=== PATIENT | female | born 1995 | race Caucasian/White ===

== ENCOUNTER 2022-07-23 06:53 | Day surgery (SDC) | payer OTHER, SELFPAY ==
[2022-07-23] MEDS: LACTATED RINGERS 1000 ML 1,000 ML 100 ML IV (07:00)
[2022-07-23 07:06] VITALS: BMI 22.8
[2022-07-23 07:30] VITALS: BP 110/65; PULSE 77; RESP 18; TEMP 36.7; O2SAT 99
[2022-07-23] MEDS: SODIUM CHLORIDE 0.9 % (FLUSH) 10 ML SYRINGE IVF (07:34)
[2022-07-23 07:47] LABS: Ur HCG Qualitative* Negative (Negative)
[2022-07-23] MEDS: CEFAZOLIN 2 GM INJ IVP (08:33)
[2022-07-23] MEDS: BACITRACIN OINTMENT BULK TUBE 1 APPLIC TOPICAL (09:16)
[2022-07-23] MEDS: LIDOCAINE 1 % PF 30 ML INJECTION (09:17)
--- NOTE | 2022-07-23 09:23 | W.ANESCHARGE ---
Anesthesia Charges Start Date/Time Anesthesia Start Date: 07/23/22 Anesthesia Start Time: 08:30 Stop Date/Time Anesthesia Stop Date: 07/23/22 Anesthesia Stop Time: 09:31
--- NOTE | 2022-07-23 09:32 | W.ANESCHARGE ---
Anesthesia Charges Start Date/Time Anesthesia Start Date: 07/23/22 Anesthesia Start Time: 08:30 Stop Date/Time Anesthesia Stop Date: 07/23/22 Anesthesia Stop Time: 09:31
[2022-07-23 09:35] VITALS: BP 91/55; PULSE 62; RESP 16; TEMP 36.6; O2SAT 98
[2022-07-23 09:45] VITALS: BP 101/69; PULSE 64; RESP 16; O2SAT 98
--- NOTE | 2022-07-23 09:47 | W.PM.GYNPROC ---
Procedure Note Date Seen: 07/23/22 Procedure Details: PREOPERATIVE DIAGNOSIS: Labial hypertrophy and inflammation POSTOPERATIVE DIAGNOSIS: Labial hypertrophy and inflammation PROCEDURE: Bilateral labia plasty SURGEON: Nohemy Daugherty MD ANESTHESIA: Monitored anesthesia care, local with 1% lidocaine IV FLUIDS: 500 mL crystalloid EBL: 5 mL FINDINGS: Mons normal, clitoris normal, urethral meatus normal. Labia minora are elongated bilaterally along the anterior aspect, with right longer than left. Inner aspect of the right labium minora is slightly roughened and thickened, exterior to Engle's line, extending to the keratinized skin of the distal most labium.? Perineum and anus normal appearance.? Vaginal introitus normal appearance.? COMPLICATIONS: None PROCEDURE IN DETAIL: Patient was taken to the operating room with IV running. Monitored anesthesia care was established. She was prepped and draped in the usual sterile fashion in the dorsal lithotomy position. She was given IV cefazolin in preoperative prophylaxis. Exam under anesthesia revealed the above-noted findings. Labia minora were marked with a surgical marker along the anticipated line of incision, encompassing the roughened, thickened skin in the distal most aspect of the right labium minora, and with an incision along the left side to even the length of the labium there. Labial skin was injected with a total 10 mL of 1% lidocaine adjacent to this line. The distal labium on each side was excised sharply with a scalpel while providing tension with Allis clamps. Bovie electrocautery was used sparingly along the subcutaneous tissue of the right labium. One subcuticular stitch of 4 0 Vicryl was placed in the right labium. The skin edges were then oversewn with 4-0 Vicryl in a running fashion. This was repeated on the left side. Scant oozing was noted on the left labium, and none on the right, at the end of procedure. Antibacterial ointment was applied to bilateral labium. Patient tolerated procedure well was taken to recovery area in stable condition.
[2022-07-23 10:00] VITALS: BP 114/69; PULSE 74; RESP 16; O2SAT 98
[2022-07-23] MEDS: HYDROCODONE/ACETAMIN 7.5-325 TABLET 1 TAB PO (10:08)
[2022-07-23 10:15] VITALS: BP 109/68; PULSE 80; RESP 16; O2SAT 97
[2022-07-23 10:30] VITALS: BP 104/64; PULSE 84; RESP 16; TEMP 36.7; O2SAT 98
== END 2022-07-23 10:59 | disposition home or self-care (01) ==
PROVIDERS: PCP Registered Nurse; Visit Provider Obstetrics & Gynecology
PROC: (CPT 56620; principal; 2022-07-23 08:30)
DX: N90.60 Unspecified hypertrophy of vulva (principal)
CPT/HCPCS: 56620; 00940; 36415; 81025; 86850; 86900; 86901; 88305; A9270; J0690; J1100; J2001; J2250; J2405; J2704; J3010; J7120

== ENCOUNTER 2022-11-06 14:05 | Outpatient (CLI) | payer OTHER, SELFPAY ==
[2022-11-06 18:16] LABS: Chlamydia DNA Amplified* NOT DETECTED (No Detected); GC DNA Amplified* NOT DETECTED (No Detected)
== END 2022-11-06 14:06 | disposition home or self-care (01) ==
PROVIDERS: PCP Registered Nurse; Visit Provider Registered Nurse
DX: Z34.91 Encounter for supervision of normal pregnancy, unspecified, first trimester (principal); O20.9 Hemorrhage in early pregnancy, unspecified; Z3A.09 9 weeks gestation of pregnancy
CPT/HCPCS: 76817; 80061; 84443; 86592; 86703; 86762; 86787; 86803; 86850; 86900; 86901; 87086; 87340; 87491; 87591

== ENCOUNTER 2023-01-21 14:00 | Outpatient (CLI) | payer OTHER, SELFPAY ==
--- NOTE | 2023-01-21 14:00 | CRLHL7_ITS ---
For Patients: As a result of the Century Cures Act, medical imaging exams and procedure reports are released immediately into your electronic medical record. You may view this report before your referring provider. If you have questions, please contact your health care provider. INDICATION: 2nd trimester anatomical survey. TECHNIQUE: Ultrasound OB pelvis transabdominal. Real-time gamez-scale imaging of the fetus was performed as well as color Doppler and spectral Doppler analysis of the umbilical artery. COMPARISON: None. FINDINGS: There is a single living intrauterine gestation. heart activity: Regular cardiac rate of 137 beats per minute. Orientation: Breech. Placenta: Anterior. No previa. Amniotic fluid volume: Alexa. Deepest pocket 5 cm. Cervix: 3.8 cm. Biometry: Biparietal diameter: 20 weeks 1 day. Head circumference: 20 weeks 0 days. Abdominal circumference: 19 weeks 3 days. Femoral length: 20 weeks 0 days. The composite ultrasound gestational age is calculated at 20 weeks 0 days with an estimated sonographic due date of June 10, 2023. The weight is estimated at 310 grams, the 24th percentile. Anatomical Survey: 4 chamber heart: Visualized. Stomach: Visualized. Kidneys: Visualized. Bladder: Visualized. Spine: Visualized. Sacrum: Visualized. 4 extremities: Visualized. Cord insertion: Visualized. 3V cord: Visualized. Face: Visualized. Nose: Visualized. Lips: Visualized. Cerebellum: Visualized. Cisterna Magna: Visualized. Lateral ventricles: Visualized. IMPRESSION: 1. Single viable intrauterine . 2. No intrinsic abnormalities noted on anatomic survey. Dictated by Anival Hearn MD @ 01/23/2023 7:54:00 AM (Electronically Signed)
== END 2023-01-21 14:01 | disposition home or self-care (01) ==
LOC: US 14:01
PROVIDERS: Visit Provider Advanced Practice Midwife
DX: Z34.92 Encounter for supervision of normal pregnancy, unspecified, second trimester (principal); Z3A.20 20 weeks gestation of pregnancy
CPT/HCPCS: 76805

== ENCOUNTER 2023-04-08 15:22 | Outpatient (CLI) | payer OTHER, SELFPAY ==
--- OUTSIDE RECORDS SUMMARY | 2023-04-16 12:00 | XMS_ITS | Clinical Summary ---
Author Name Unknown Organization [facility] Address [place], [place] [address] Care Team Providers Care Home Health Care Physician Name Role Phone Clinic, No Pcp Or Primary Care Provider Unavaila ble Allergies No known active allergies Medications Medication Sig Dispensed Refills Start Date End Date Status 21/iron fu/folic acid ( COMPLETE ORAL) 0 Active clotrimazole (LOTRIMIN) 1 % cream Apply topically to affected area(s) 2 times a day. 30 g 0 12/07/2021 Active hydrocortisone 2.5% cream Apply topically to affected area(s) 2 times a day as needed for irritation or rash. 30 g 0 12/07/2021 Active ondansetron (ZOFRAN) 4 mg tablet 4 MG ORALLY EVERY 6 HOURS NEEDED FOR NAUSEA AND VOMITING 0 12/05/2022 Active vitamins-folic acid 1 mg ( RX) tablet Take 1 Tablet by mouth once daily. 0 Active sertraline (ZOLOFT) 50 mg tablet Take 75 mg by mouth once daily. 0 Active Active Problems Estimated Date of Delivery Comme nts Yes 06/09/2023 No known active problems Social History Tobacco Use Types Packs/Day Years Used Date Smoking Tobacco: Never Smokeless Tobacco: Never Tobacco Cessation:Counseling Given: Yes Alcohol Use Standard Drinks/Week Comments Not Currently 0 (1 standard drink = 0.6 oz pur e alcohol) PHQ-2 Answer Date Recorded PHQ-2 TOTAL SCORE 3 10/27/2020 Social Connections Answer Date Recorded Frequency of Communication with Friends and Fami ly Not on file 04/07/2021 Financial Resource Strain Answer Date R ecorded Difficulty of Paying Living Expenses Not on file 04/07/2021 Difficulty of Paying Living Expenses Not on file 04/07/2021 Estimated Date of Delivery Comme nts Yes 06/09/2023 Sex and Gender Information Value Date Recorded Sex Assigned at Not on file Gender Identity Not on file Sexual Orientation Not on file Obstetrics History Para Term AB IAB SAB Ectopic Multiple Livin g Live Births 2 Date Outcome GA Total Labor Labor/2nd/3rd Weight Sex Delivery Anes PTL Beth A1 A5 Name Cl in Current Last Filed Vital Signs Vital Sign Reading Time Taken Comments Blood Pressure 110/64 01/02/2023 4:24 PM CDT Pulse 78 01/02/2023 4:24 PM CDT Temperature 37.3 ??C (99.1 ??F) 01/02/2023 4:24 PM CD T Respiratory Rate 18 01/02/2023 4:24 PM CDT Oxygen Saturation 97% 01/02/2023 4:24 PM CDT Inhaled Oxygen Concentration - - Weight 65.5 kg (144 lb 8 oz) 01/02/2023 4:24 PM CDT Height 157.5 cm (5' 2) 02/24/2021 1:00 PM [employer]PER[employer]OR [employer] Body Mass Index 26.43 02/24/2021 1:00 PM [employer] Plan of Treatment Health Maintenance Due Date Last Done Comments COVID-19 vaccine series (#1) 03/06/1997 HPV series for age 9-26 (1 - 2-dose series) 09/04/2007 Tdap 09/04/2007 HIV for age 15-65 09/04/2011 Hepatitis C screening for ag e 18-79 2014 Tetanus booster 2016 BMI (ht and wt on same day) for age 18+ 10/27/2021 10/27/2020 Depression screening for age 12+ 10/27/2021 10/28/19 21 Influenza for age 9-49 12/06/2022 Pap test for age 21-65 08/01/2023 07/31/2020 Pneumococcal series for age 6-64 Aged Out No longer eligible based on patient's age to complete this topic Care Teams Home Health Care Physician Relationship Specialty Start Date End Date Clinic, No Pcp Or . PCP - General 10/12/20
--- OUTSIDE RECORDS SUMMARY | 2023-04-16 12:00 | XMS_ITS | Encounter Summary ---
Author Name Unknown Organization [facility] Address [address] [place] [address] Care Team Providers Care Poultry Grader Name Role Phone None Reported, Pcp Primary Care Provider Unavail able Reason for Visit * Reason Comments Cough 7 days, worse over t he weekend Sinus Problem Over a month, comple tatiana one course of antibiotic Chest Pain 3 days Shortness of Breath 4 days all the time , unable to lay down Wheezing 4 days * Appointment Request (Routine) - Closed Specialty Diagnoses / Procedures Referred By Akhil white Referred To Contact Family Medicine Referral ID Status Reason Start Date Expiration Date Visits Re quested Visits Authorized [id number] Closed 01/13/2023 01/13/2024 1 1 Encounter Details Date Type Department Care Team (Late st Contact Info) Description 01/13/2023 6:00 PM CDT Office Visit Department of Family Medicine, [facility], in [place], [place] [address] [phone] Merced Piedra APRN, C.N.P. [address] [phone] Pneumonia (Primary Dx) Social History Tobacco Use Types Packs/Day Years Used Date Smoking Tobacco: Never Smokeless Tobacco: Never Tobacco Cessation:Counseling Given: No Nutrition Answer Date Recorded Nutrition: EVOO Fat Source Unknown 06/12 Nutrition: Servings of Fruits/Vegetables per Day Not on file 06/12/2020 Dental Answer Date Recorded Dental: Regular Dentist Unknown 06/16/19 21 Estimated Date of Delivery Comme nts Yes 06/09/2023 Sex and Gender Information Value Date Recorded Sex Assigned at Not on file Gender Identity Not on file Sexual Orientation Not on file documented as of this encounter Last Filed Vital Signs Vital Sign Reading Time Taken Comments Blood Pressure 117/75 01/13/2023 5:41 PM CDT Pulse 99 01/13/2023 5:41 PM CDT Temperature 36.7 ??C (98.1 ??F) 01/13/2023 5:41 PM CD T Respiratory Rate 20 01/13/2023 5:41 PM CDT Oxygen Saturation 96% 01/13/2023 5:41 PM CDT Inhaled Oxygen Concentration - - Weight 66.5 kg (146 lb 9.7 oz) 01/13/2023 5:41 P M CDT Height - - Body Mass Index - - documented in this encounter Progress Notes * Merced Piedra, MARGO, C.N.P. - 01/13/2023 6:00 PM CDT SUBJECTIVE CHIEF COMPLAINT / REASON FOR VISIT Faina Hernandez is a 27 y.o. female who presents for evaluation of persistent sinus symptoms. HISTORY OF PRESENT ILLNESS Faina is a pleasant 27-year-old female here today for concerns of persistent sinus symptoms, wheezing. Patient states that she is 20 weeks at this time. She was seen a week ago in clinic and treated for a sinus infection with amoxicillin. She finished the antibiotic and has not had any relief of symptoms. She reports cough, sinus congestion, chest discomfort with coughing, shortness a breath and wheezing. She states it is difficult to lay down flat and at times with coughing fits has difficulty catching her breath. She feels she can hear wheezing. She denies any fevers, nausea or vomiting, changes in bowel or bladder. She did take a COVID test at home today and it was negative. She has tried Sudafed a few times as well as dextromethorphan. She also has tried Tylenol for discomfort with no relief of symptoms from either. Medications above were okayed by her OB. Review of Systems A brief review of systems was negative except for that mentioned in the history of present illness. Current Outpatient Medications: cowmjzc-Rl-flkc-FA (VINATE ONE) 60 mg iron-1 mg per tablet, Take 1 tablet by mouth daily.,Disp: , Rfl: sertraline (ZOLOFT) 50 mg tablet, Take 50 mg by mouth daily., Disp: , Rfl: albuterol 90 mcg/actuation inhaler, Inhale 2 puffs every 6 (six) hours as needed for wheezing., Disp: 6.7 g, Rfl: 0 azithromycin (ZITHROMAX) 250 mg tablet, Take 500 mg (2 tablets) by mouth the first day then 250 mg (1 tablet) by mouth for 4 more days., Disp: 6 tablet, Rfl: 0 hydrocortisone (HYTONE) 2.5 % cream, Apply 1 application topically 2 (two) times a day as needed for irritation or rash., Disp: 30 g, Rfl: 0 No Known Allergies OBJECTIVE PHYSICAL EXAM BP 117/75 (BP Location: Right arm, Patient Position: Sitting, Cuff Size: Regular) Pulse 99 Temp36.7 ??C (Temporal) Resp 20 Wt 66.5 kg SpO2 96% No There is no height or weight on file to calculate BMI. Vitals and nursing note reviewed. Constitutional General: She is not in acute distress. Appearance: Normal appearance. She is ill-appearing. HENT Right Ear: Tympanic membrane, ear canal and external ear normal. There is no impacted cerumen. Left Ear: Tympanic membrane, ear canal and external ear normal. There is no impacted cerumen. Nose: Congestion present. No rhinorrhea. Mouth/Throat: Mouth: Mucous membranes are moist. Pharynx: Oropharynx is clear. No posterior oropharyngeal erythema. Eyes General: Right eye: No discharge. Left eye: No discharge. Conjunctiva/sclera: Conjunctivae normal. Cardiovascular Pulses: Normal pulses. Heart sounds: Normal heart sounds. Pulmonary Effort: Pulmonary effort is normal. No respiratory distress. Breath sounds: Wheezing and rhonchi present. Musculoskeletal Cervical back: Neck supple. Lymphadenopathy Cervical: No cervical adenopathy. Skin General: Skin is warm and dry. Capillary Refill: Capillary refill takes 2 to 3 seconds. Neurological Mental Status: She is alert and oriented to person, place, and time. ASSESSMENT / PLAN 1. Pneumonia Given patient's report of symptoms, physical exam recommend patient be treated for atypical pneumonia concerns, given she just finished a full treatment of amoxicillin. Albuterol inhaler also sent topharmacy to do every 6 hours as needed for wheezing. Discussed red flag symptoms with patient for which she should return to the clinic or present to the ER should they occur. Discussed appropriate administration of the above medications. A comprehensive discussion was held with the patient to review the diagnosis and treatment plan. Medication side effects and possible interactions discussed. Discussed risks??? benefits??? alternatives??? side effects of treatment. The patient acknowledged their understanding of all items discussed, and was afforded the opportunity to clarify and ask additional questions. - azithromycin (ZITHROMAX) 250 mg tablet; Take 500 mg (2 tablets) by mouth the first day then 250 mg (1 tablet) by mouth for 4 more days. Dispense: 6 tablet; Refill: 0 - albuterol 90 mcg/actuation inhaler; Inhale 2 puffs every 6 (six) hours as needed for wheezing. Dispense: 6.7 g; Refill: 0 Merced Piedra APRN, C.N.P. documented in this encounter Plan of Treatment Not on file documented as of this encounter Visit Diagnoses Diagnosis Pneumonia- Primary documented in this encounter Care Teams Poultry Grader Relationship Specialty Start Date End Date None Reported, Pcp PCP - General Family Medicine 01/13/23 documented as of this encounter
--- OUTSIDE RECORDS SUMMARY | 2023-04-16 12:00 | XMS_ITS | Encounter Summary ---
Author Name Unknown Organization [facility] Address [address] [place] [address] Care Team Providers Care Concrete Puddler Name Role Phone None Reported, Pcp Primary Care Provider Unavail able Reason for Visit * Reason Onset Date Comments Cough 01/17/2023 Encounter Details Date Type Department Care Team (Late st Contact Info) Description 01/17/2023 Nurse Triage Department of Family Medicine, [facility], in [place], [place] [address] [place] [phone] Kei Quijano, R.N. Cough Social History Tobacco Use Types Packs/Day Years Used Date Smoking Tobacco: Never Smokeless Tobacco: Never Nutrition Answer Date Recorded Nutrition: EVOO Fat [...] on file documented as of this encounter Miscellaneous Notes * Telephone Encounter - Kei Quijano, R.N. - 01/17/2023 11:51 AM CDT Chief Complaint / Reason for Call Patient is a 27 y.o. female calling regarding Cough. Assessment Concern: Ongoing cough. COVID test has been negative via home test. Patient was seen twice for thisalready. She initially was on amoxicillin. It did not help her with her cough. Then she was given zpack and inhaler. She was last seen for this on 01/13/23. Since her last visit she states her breathing is not very much improved. Her chest hurts less but she still has the cough, wheezing, shortness of breath. She denies fevers. She is 20-21 weeks . No fevers. Present for: 1 month. Home cares tried: Albuterol, Zithromax. Calling to request: an appointment The recommended disposition is See a health care provider within 24 hours (overriding See a health care provider within 4 hours). Patient was warm transferred to, [facility], Patient Appointment Sales Representative [facility] at the clinic for further assistance. If clinic appointment is not available in the next 24 hours, caller is advised to be seen in urgentcare or same day clinic. Reason for Disposition [1] MILD difficulty breathing (e.g., minimal/no SOB at rest, SOB with walking, pulse <100) AND [2] still present when not coughing Protocols used: Cough - Acute Lfumeohkeh-TVNKP-QS Care Advice Patient/Caregiver understands and will follow care advice?: Yes, able to teach back SEE HCP (OR PCP TRIAGE) WITHIN 4 HOURS: CALL BACK IF: * You become worse * Caller/Patient encouraged to call back with questions, concerns, or new/worsening symptoms at anytime documented in this encounter Plan of Treatment Not on file documented as of this encounter Visit Diagnoses Not on filedocumented in this encounter Care Teams Concrete Puddler Relationship Specialty Start Date End Date None Reported, Pcp PCP - General Family Medicine 01/13/23 documented as of this encounter
--- OUTSIDE RECORDS SUMMARY | 2023-04-16 12:00 | XMS_ITS | Clinical Summary ---
Author Name Unknown Organization [facility] Address [address] [place] [address] Care Team Providers Care [employer] Assistant Manager Name Role Phone None Reported, Pcp Primary Care Provider Unavail able Source Comments Patient records contain information from all sites at [facility]. For routine questions regarding patient records, call [phone] during business hours, M-F 8:00 AM - 5:00 PM Central Time. Record requests for emergency care only can be directed to [phone] at any time.[facility] Allergies No known active allergies Medications Medication Sig Dispensed Refills Start Date End Date Status sertraline (ZOLOFT) 50 mg tablet Take 50 mg by mouth daily. 0 11/03/2021 Active rgsbxdr-Db-bcgw-FA (VINATE ONE) 60 mg iron-1 mg per tablet Take 1 tablet by mouth daily. 0 Active hydrocortisone (HYTONE) 2.5 % cream Apply 1 application topically 2 (two) times a day as needed for irritation or rash. 30 g 0 12/07/2021 Active azithromycin (ZITHROMAX) 250 mg tabletIndications:P neumonia Take 500 mg (2 tablets) by mouth the first day then 250 mg (1 tablet) by mouth for 4 more days. 6 tablet 0 01/13/2023 Active albuterol 90 mcg/actuation inhalerIndications: Pneumonia Inhale 2 puffs every 6 (six) hours as needed for wheezing. 6.7 g 0 01/13/2023 Active Active Problems Estimated Date of Delivery Comme nts Yes 06/09/2023 No known active problems Encounters Date Type Department Care Team Description 02/04/2023 Refill Department of Family Medicine, [facility], in [place], [place] [address] [place] [phone] Merced Piedra APRN C.N.P. Med Refill 01/17/2023 Nurse Triage Department of Family Medicine, [facility], in [place], [place] [address] [place] [phone] Kei Quijano RClaraN. Cough from Last 3 Months Immunizations Name Administration Dates Next Due Tdap 01/30/2021 Social History Tobacco Use Types Packs/Day Years [...] on file Sexual Orientation Not on file Last Filed Vital Signs Vital Sign Reading [...] - - Body Mass Index - - Plan of Treatment Health Maintenance Due Date Last Done Comments HIV Screening 1996 Hepatitis B Vaccines (1 of 3 - 3-dose series) 1996 Hepatitis C Screening 1996 COVID-19 Vaccine (#1) 03/06/1997 HPV Vaccines (1 - 2-dose series) 2005 Depression Screening (Annual PHQ-2) 04/07/2022 Influenza Vaccine (#1) 2023 RSV vaccine - (32-3 6 weeks) or 60+ years (1 - Risk 1-dose series) 04/14/2023 Cervical Cancer Screening 08/01/2023 07/31/2020 DTaP,Tdap,and Td Vaccines (2 - Td or Tdap) 01/30/2031 01/30/2021 Pneumococcal vaccine (0-64 years) Aged Out No longer eligible based on patient's age to complete this topic Care Teams [employer] Assistant Manager Relationship Specialty Start Date End Date None Reported, Pcp PCP - General Family Medicine 01/13/23
--- OUTSIDE RECORDS SUMMARY | 2023-04-16 12:00 | XMS_ITS | Encounter Summary ---
Author Name Unknown Organization [facility] Address [address] [place] [address] Care Team Providers Care Vest Finisher Name Role Phone Unavailable Primary Care Provider Unavailabl e Reason for Visit * Reason Onset Date Comments Cough 12/30/2022 Nasal Congestion 12/30/2022 Encounter Details Date Type Department Care Team (Late st Contact Info) Description 12/30/2022 Nurse Triage Department of Family Medicine, [facility], in [place], [place] [address] [place] [phone] Mikki Lal, R.N. Cough; Nasal Congestion Social History Tobacco Use Types Packs/Day Years Used Date Smoking Tobacco: Never Smokeless Tobacco: Never Nutrition Answer Date Recorded Nutrition: EVOO Fat Source Unknown 06/12 Nutrition: Servings of Fruits/Vegetables per Day Not on file 06/12/2020 Dental Answer Date Recorded Dental: Regular Dentist Unknown 06/16/19 21 Sex and Gender Information Value Date Recorded Sex Assigned at Not on file Gender Identity Not on file Sexual Orientation Not on file documented as of this encounter Miscellaneous Notes * Telephone Encounter - Mikki Lal, R.N. - 12/30/2022 10:32 AM CDT Chief Complaint / Reason for Call Patient is a 27 y.o. female calling regarding Cough and Nasal Congestion. Assessment Concern: URI symptoms -nasal congestion and coughing for weeks. Intermittent ear pressure bilat. Nofacial pain or fever. Has post nasal drainage when laying down. Feels stuffed up when upright. Stated coughing increased again within the past wk. Has not tested for COVID. 17 weeks w/ OB care elsewhere; hasn't reached out to OB provider w/ symptoms. Doesn't recall significant congestion w/ last . Present for: 1 month Home cares tried: sudafed, allergy meds, no longer doing saline nasal flushes Calling to request: appt in same day The recommended disposition is See a health care provider within 3 days. Patient was warm transferred to, [facility], Patient Appointment Plug Cutter at the clinic for further assistance. Reason for Disposition Lots of coughing Protocols used: Sinus Pain or [id number]-WC Care Advice Patient/Caregiver understands and will follow care advice?: Yes, able to teach back CALL BACK IF: * Difficulty breathing (and not relieved by cleaning out nose) * You become worse documented in this encounter Plan of Treatment Not on file documented as of this encounter Visit Diagnoses Not on filedocumented in this encounter
--- OUTSIDE RECORDS SUMMARY | 2023-04-16 12:00 | XMS_ITS | Encounter Summary ---
Author Name Unknown Organization [facility] Address [address] [place] [address] Care Team Providers Care Maintenance Mechanic 2Nd Shift Name Role Phone None Reported, Pcp Primary Care Provider Unavail able Reason for Visit * Reason Onset Date Comments URI 01/13/2023 Problem 01/13/2023 Encounter Details Date Type Department Care Team (Late st Contact Info) Description 01/13/2023 Nurse Triage Department of Family Medicine, [facility], in [place], [place] [address] [place] [address] Ashley Robin [address] [place] [address] URI; Problem Social History Tobacco Use Types Packs/Day Years [...] encounter Miscellaneous Notes * Telephone Encounter - Ashley Robin M.S.N., R.N. - 01/13/2023 9:39 AM CDT Chief Complaint / Reason for Call Patient is a 27 y.o. female calling regarding URI and Problem. Assessment Concern: Patient reports multiple respiratory symptoms that started over a month ago. She is 19, close to 20, weeks . She was seen and treated for a sinus infection 1.5 weeks ago at [facility] in [place]; the one week course of Amoxicillin didn't help. She had a light cough prior to antibiotics, which has worsened. The cough is heavy, produces yellow/green sputum) and frequent (entireduration of call). She's tested negative for COVID-19 2 weeks ago. For the past 3 days, she's had some wheezing, difficulty breathing, and chest pain. The chest pain is worse when coughing, but her chest is sore at rest (6/10 on pain scale). Pain goes into her back, between the shoulders. Though she is having some difficulty breathing now, not extreme, but it's not easy. Breathing and chest pain have been worsening over the past 3 days. Some chills, but don't feel feverish, though she hasn't checked her temp. Present for: over a month Home cares tried: taking Sudafed on and off for awhile - not consistently (didn't help), tea (doesn't help) Calling to request: an appointment (can't get into the usual clinic she goes to) The recommended disposition is See a health care provider within 24 hours (overriding Go to ED Now). Discussed with tele EM provider, Dr. Acuna, who recommended an appointment the next 24 hours based on current symptoms. Patient agrees. Encouraged call back with new, worsening, or persistent symptoms or going right to the emergency department/calling 911 as necessary. Patient was warm transferred to, [place] , Patient Appointment Plant Utility Person at the clinic for further assistance. If clinic appointment is not available in the next 24 hours, caller is advised to be seen in same day clinic. Endpoint: 24 hours. Reason for Visit: cough/difficulty breathing/chestpain. Video Visit: not recommended Reason for Disposition Chest pain (Exception: MILD central chest pain, present only when coughing.) now: 09/14, at worst: 7-8/10 Protocols used: Cough - Acute Sdjnjbuluh-CQBCI-XL Care Advice Patient/Caregiver understands and will follow care advice?: Yes, able to teach back If you take anything qwgq-ruu-xqcgikl, ensure it's safe to take in . You can consult your primary care provider or a pharmacist as a resource. NASAL WASHES FOR A STUFFY NOSE: * Introduction: Saline (salt water) nasal irrigation (nasal wash) is an effective and simple home remedy for treating stuffy nose and sinus congestion. The nose can be irrigated by pouring, spraying,or squirting salt water into the nose and then letting it run back out. * How it Helps: The salt water rinses out excess mucus and washes out any irritants (dust, allergens) that might be present. It also moistens the nasal cavity. * Methods: There are several ways to irrigate the nose. You can use a saline nasal spray bottle (available yjcm-odb-msjkclu), a rubber ear syringe, a medical syringe without the needle, or a NETI POT. NASAL WASHES - RKNO-YV-FQBF INSTRUCTIONS: * STEP 1: Lean over a sink. * STEP 2: Gently squirt or spray warm salt water into one of your nostrils. * STEP 3: Some of the water may run into the back of your throat. Spit this out. If you swallow thesalt water it will not hurt you. * STEP 4: Blow your nose to clean out the water and mucus. * STEP 5: Repeat steps 1 through 4 for the other nostril. You can do this a couple times a day if it seems to help you. HOW TO MAKE SALINE (SALT WATER) NASAL WASH: * Put 1 cup (8 oz; 240 ml) of water in a clean container. * Add 3/4 teaspoon of non-iodized salt (such as yvette or pickling salt) to the water. * Add 1/4 teaspoon baking soda to the water. Stir well. * Use distilled water or boiled tap water that has cooled. * Throw away any unused saline nasal wash after 24 hours. COUGH MEDICINES: * COUGH DROPS: Efzn-vvj-zcupjkw cough drops can help a lot, especially for mild coughs. They soothean irritated throat and remove the tickle sensation in the back of the throat. Cough drops are easyto carry with you. * HOME REMEDY - HARD CANDY: Hard candy works just as well as krtq-fdb-jijfams cough drops. People who have diabetes should use sugar-free candy. * HOME REMEDY - HONEY: This old home remedy has been shown to help decrease coughing at night. The adult dosage is 2 teaspoons (10 ml) at bedtime. * warm fluids, steaming yourself (breathing in mist of shower running in bathroom) and/or using a humidifier may help HUMIDIFIER: * If the air is dry, use a humidifier in the bedroom. * Dry air makes coughs worse. CALL BACK IF: * New or worsening symptoms develop GO TO THE EMERGENCY ROOM OR CALL 911 IF: * increased difficulty breathing * worsening/increased chest pain or discomfort * lips or face are blue (*call 911) documented in this encounter Plan of Treatment Not on file documented as of this encounter Visit Diagnoses Not on filedocumented in this encounter Care Teams Maintenance Mechanic 2Nd Shift Relationship Specialty Start Date End Date None Reported, Pcp PCP - General Family Medicine 01/13/23 documented as of this encounter
--- OUTSIDE RECORDS SUMMARY | 2023-04-16 12:00 | XMS_ITS ---
Author Name Unknown Organization [facility] Address [address] [place] [address] Care Team Providers Care Cognos Architect Name Role Phone Unavailable Unavailable Unavailable Surgery Details Not on file Complications Check Surgery Details section. Procedure Estimated Blood Loss Check Surgery Details section. Procedure Findings Check Surgery Details section. Procedure Specimens Taken Check Surgery Details section.
--- OUTSIDE RECORDS SUMMARY | 2023-04-16 12:00 | XMS_ITS | Encounter Summary ---
Author Name Unknown Organization [facility] Address [address] [place] [address] Care Team Providers Care Loans Officer Name Role Phone Unavailable Primary Care Provider Unavailabl e Reason for Visit * Reason Onset Date Comments Sinusitis 12/31/2022 Encounter Details Date Type Department Care Team (Late st Contact Info) Description 12/31/2022 Nurse Triage Department of Family Medicine, [facility], in [place], [place] [address] [place] [address] Cherise Chung RClaraN. [address] [place] [address] Sinusitis Social History Tobacco Use Types Packs/Day Years [...] encounter Miscellaneous Notes * Telephone Encounter - Cherise Chung, R.N. - 12/31/2022 11:33 AM CDT Chief Complaint / Reason for Call Patient is a 27 y.o. female calling regarding Sinusitis. Assessment Concern: I think I have a sinus infection. Sinus congestion, cough, runny nose, post nasal drip, headaches with sinus pressure. Ear pressure. Some red discharge with blowing her nose. Runny nose for 3-4 weeks. Has tried allergy meds with minimal relief. Rates her discomfort 6/10. Has tried saline nasal spray. She is 17 weeks . Calling to request: an appointment. The recommended disposition is See a health care provider within 3 days. Patient was provided scheduling phone number, plan of care, and transferred to scheduling per current regional process. If clinic appointment is not available in the next 3 days, caller is advised bill seen in urgent care or emergency department. Reason for Disposition [1] Sinus congestion (pressure, fullness) AND [2] present > 10 days Protocols used: Sinus Pain or Oqgcenlxtj-VDHXS-GY Care Advice Patient/Caregiver understands and will follow care advice?: Yes, able to teach back SEE PCP WITHIN 3 DAYS: CALL BACK IF: * Difficulty breathing (and not relieved by cleaning out nose) * You become worse documented in this encounter Plan of Treatment Not on file documented as of this encounter Visit Diagnoses Not on filedocumented in this encounter
--- OUTSIDE RECORDS SUMMARY | 2023-04-16 12:00 | XMS_ITS | Clinical Summary ---
Author Name Unknown Organization [facility] Address [address] [place] [address] Care Team Providers Care Wooling Machine Operator Name Role Phone Unavailable Primary Care Provider Unavailabl e Source Comments You are receiving this document as you are listed as the primary care provider,follow-up provider, or the patient has been referred to you for consultation.This is in compliance with the Medicare andMedicaid EHR Incentive Program,which states Providers who transition their patient to another setting of careor provider of care or refers their patient to another provider of care shouldprovide summary care record for each transition of care or referral. [facility] Allergies No known active allergies Medications No known medications Social History Tobacco Use Types Packs/Day Years Used Date Smoking Tobacco: Some Days Smokeless Tobacco: Never Tobacco Cessation:Ready to Q uit: No; Counseling Given: No Comments:occasionally Sex and Gender Information Value Date Recorded Sex Assigned at Not on file Gender Identity Not on file Sexual Orientation Not on file Last Filed Vital Signs Vital Sign Reading Time Taken Comments Blood Pressure 122/71 06/17/2019 10:38 AM CDT Pulse 95 06/17/2019 10:38 AM CDT Temperature 37.7 ??C (99.9 ??F) 06/17/2019 10:38 AM C DT Respiratory Rate 18 06/17/2019 10:38 AM CDT Oxygen Saturation 100% 06/17/2019 10:38 AM CDT Inhaled Oxygen Concentration - - Weight - - Height - - Body Mass Index - - Plan of Treatment Health Maintenance Due Date Last Done Comments Cervical Cancer Screening Due 1996 Hep C Screening (Preventive Services) 1996 HepB (1) 1996 COVID-19 Vaccine (#1) 03/06/1997 Pneumococcal (1 - PCV) 2002 HPV Vaccine (1 - 2-dose series) 09/04/2007 HIV Screening (Preventive Services) 2012 Adult Preventive Visit 2014 DTaP/Tdap/Td (1 - Tdap) 09/04/2015 Influenza (#1) 2022 Zoster/Shingles (1 of 2) 2046 HepA Aged Out No longer eligi ble based on patient's age to complete this topic Hib Aged Out No longer eligi ble based on patient's age to complete this topic IPV (Polio) Aged Out No longer eligi ble based on patient's age to complete this topic MCV4 Aged Out No longer eligi ble based on patient's age to complete this topic
--- OUTSIDE RECORDS SUMMARY | 2023-04-16 12:00 | XMS_ITS | Referral Summary ---
Author Name Unknown Organization [facility] Address [address] [place] [address] Care Team Providers Care Network Analyst Name Role Phone None Reported, Pcp Primary Care Provider Unavail able Source Comments Patient records contain information from all sites at [facility]. For routine questions regarding patient records, call [phone] during business hours, M-F 8:00 AM - 5:00 PM Central Time. Record requests for emergency care only can be directed to [phone] at any time.[facility] Encounters Date Type Department Care Team Description 02/04/2023 Refill Department of Family Medicine, [facility], in [place], [place] [address] [place] [phone] Merced Piedra, MARGO, C.N.P. Med Refill 01/17/2023 Nurse Triage Department of Family Medicine, [facility], in [place], [place] [address] [place] [address] Kei Quijano, R.N. Cough from Last 3 Months Allergies No known active allergies Medications Medication Sig Dispensed Refills Start Date End Date Status sertraline (ZOLOFT) 50 mg tablet Take 50 mg by mouth daily. 0 11/03/2021 Active lloplaw-Mt-tyue-FA (VINATE ONE) 60 mg iron-1 mg per [...] nts Yes 06/09/2023 No known active problems Immunizations Name Administration Dates Next Due Tdap [...] Mass Index - - Plan of Treatment Not on file Care Teams Network Analyst Relationship Specialty Start Date End Date None Reported, Pcp PCP - General Family Medicine 01/13/23
--- OUTSIDE RECORDS SUMMARY | 2023-04-16 12:00 | XMS_ITS | Encounter Summary ---
Author Name Unknown Organization [facility] Address [address] [place] [address] Care Team Providers Care L[facility] Home Health Name Role Phone None Reported, Pcp Primary Care Provider Unavail able Reason for Visit * Reason Comments Med Refill Encounter Details Date Type Department Care Team (Late st Contact Info) Description 02/04/2023 Refill Department of Family Medicine, [facility], in [place], [place] [address] [phone] Merced Piedra, MANAGER DATA WAREHOUSE, C.N.P. [address] [phone] Med Refill Social History Tobacco Use Types Packs/Day Years [...] on file documented as of this encounter Plan of Treatment Not on file documented as of this encounter Visit Diagnoses Diagnosis Pneumonia documented in this encounter Care Teams [facility] Relationship Specialty Start Date End Date None Reported, Pcp PCP - General Family Medicine 01/13/23 documented as of this encounter
== END 2023-04-08 15:23 | disposition home or self-care (01) ==
LOC: NFLDREF 04-16 11:58
PROVIDERS: PCP Family Medicine; Referring Provider Family Medicine; Visit Provider Obstetrics & Gynecology
DX: Z34.90 Encounter for supervision of normal pregnancy, unspecified, unspecified trimester (principal)
CPT/HCPCS: 86592

== ENCOUNTER 2023-05-09 13:20 | Outpatient (CLI) | payer OTHER, SELFPAY ==
--- OUTSIDE RECORDS SUMMARY | 2023-05-09 13:23 | XMS_ITS | Clinical Summary ---
Author Name Unknown Organization [facility] Address [address] [place] [address] Care Team Providers Care Centrifuge Separator Tender Name Role Phone Unavailable Primary Care Provider [...]
[2023-05-10 11:11] LABS: Strep B DNA Probe Negative (Negative)
[2023-05-10 11:19] LABS: Strep B Susceptibility Needed? No
== END 2023-05-09 13:21 | disposition home or self-care (01) ==
PROVIDERS: PCP Family Medicine; Visit Provider Obstetrics & Gynecology
DX: Z34.83 Encounter for supervision of other normal pregnancy, third trimester (principal); R35.0 Frequency of micturition
CPT/HCPCS: 87081; 87086; 87653

== ENCOUNTER 2023-06-05 14:52 | Outpatient (CLI) | payer OTHER, SELFPAY ==
--- NOTE | 2023-06-05 16:52 | PC.OBNST ---
NST Note NST Note Start: 06/05/23 14:52 Freq: ONCE Status: Active Protocol: Document 06/05/23 16:51 JANINA (Rec: 06/05/23 16:52 FADIANA LUISA [id number]) NST Note 2 Para (# of births) 1 EDC 06/09/23 Gestational Age In Weeks & Days 39 Weeks & 3 Days Patient Presented with Complaint(s) of Contractions/cramping Reactive Yes Appropriate for Gestational Age Yes RN Vineet RN Date 06/05/23 Reactive Yes Appropriate for Gestational Age Yes PONCHO Hardin RN Date 06/05/23 OB NST charge Yes Complete NST Note via Write Note Yes The provider's electronic signature indicates the NST is reactive/appropriate for gestational age. *Note to provider: If an addendum is required, open the patient's chart and click on the note under the Nurse/Allied Health tab.
--- NOTE | 2023-06-11 15:02 | PC.OBNST ---
NST Note NST Note Start: 06/05/23 14:52 Freq: ONCE Status: Discharge Protocol: Document 06/05/23 16:51 FADIANA LUISA (Rec: 06/05/23 16:52 JANINA [id number]) NST Note 2 Para (# of births) 1 EDC 06/09/23 Gestational Age In Weeks & Days 39 Weeks & 3 Days Patient Presented with Complaint(s) of Contractions/cramping Reactive Yes Appropriate for Gestational Age Yes RN Vineet RN Date 06/05/23 Reactive Yes Appropriate for Gestational Age Yes PONCHO Hardin RN Date 06/05/23 OB NST charge Yes Complete NST Note via Write Note Yes The provider's electronic signature indicates the NST is reactive/appropriate for gestational age. *Note to provider: If an addendum is required, open the patient's chart and click on the note under the Nurse/Allied Health tab.
== END 2023-06-05 16:39 | disposition home or self-care (01) ==
LOC: OB OUT 14:52 → OB 14:53
PROVIDERS: PCP Family Medicine; Visit Provider Obstetrics & Gynecology
DX: O47.1 False labor at or after 37 completed weeks of gestation (principal); Z3A.39 39 weeks gestation of pregnancy
CPT/HCPCS: 59025; G0463

== ENCOUNTER 2023-06-12 07:34 | Inpatient (IN) | payer OTHER, SELFPAY ==
[2023-06-12] VITALS (44 sets, daily range): BP systolic 93–139; BP diastolic 50–74; PULSE 63–109; RESP 16; TEMP 36.6–36.9; O2SAT 96–100; BMI 32.4
--- NOTE | 2023-06-12 08:46 | W.PM.LDBA ---
Subjective History of Present Illness Narrative: Patient is being admitted to Labor and Delivery for elective induction of labor. She is a 27 year old -0-0-1 woman at 40 weeks, 3 days gestation. Her full history and physical was dictated by Dr. Olivarez on 05/20/23. Please see this for details. Specific Issues/Plans G 2 P 1001 Fiance: Mohsen. Daughter: Tamra. Baby: boy Roverto. H&P by CGM on 05/20/23 1. History of depression. Currently well managed on sertraline 50 mg daily. - 04/22/2023: PHQ-9: 3; BRITTA-7: 0. 2. BA: -Has been needing to utilize rescue albuterol frequently during this -Add budesonide/formoterol inhaler BID 05/20/23 4. Needs Pap. 5. Varicella non-immune. PP vaccine. 6. Sporadic care. 7. Erythema Nodosum COVID: Not vaccinated. Recommended. Declined. Flu: Declined. RSV: Out of range TDAP: 04/22/2023. OB - Problem Based A/P Additional Plan (1) : Status: Acute Plan Patient desires elective IOL. Favorable cervix. Reassuring status. GBS negative. Begin pitocin for IOL. I will reassess in a few hours when regular contractions are noted, and will consider AROM at that time. Plans for epidural in active labor. Delivery/Labor/Induction Plan Induction method: per pitocin protocol OB Result Labs GBS Status: negative OB Exam Physical Exam Vital signs: Temp Pulse Resp BP Pulse Ox 98.5 F 81 16 107/62 97 06/12/23 07:44 06/12/23 07:44 06/12/23 07:44 06/12/23 07:44 06/12/23 07:44 Narrative: Physical exam: General: No acute distress Psych: Alert and oriented x3, full affect HEENT: Normocephalic, atraumatic Heart: Regular rate and rhythm, no murmur rub or gallop Lungs: Clear to auscultation bilaterally Abdomen: Soft, nontender, gravid, cephalic lie Lower extremities: 2+ bilateral edema, no erythema Pelvic exam: Cervix 3 cm, 70% effaced, -1 station, mid position, soft tracing: Baseline 135, accelerations present, moderate variability.
[2023-06-12] MEDS: OXYTOCIN 30 unit/500 ML in NS 30 UNIT/500 ML BAG IVPB (09:11)
[2023-06-12] MEDS: LACTATED RINGERS 1000 ML 1,000 ML 125 ML IV ×2 (09:11→17:57)
[2023-06-12 11:14] LABS: Basophils Absolute Auto 0.03 K/uL (0.00-0.30); Basophils Percent Auto 0.3 % (0.0-3.0); Eosinophils Absolute Auto 0.25 K/uL (0.00-0.50); Eosinophils Percent Auto 2.7 % (0.0-7.0); Hematocrit 39.5 % (33.0-51.0); Hemoglobin* 13.2 gm/dL (12.0-16.0); Immature Granulocytes Abs Auto 0.03 K/uL (0.00-0.30); Immature Granulocytes Pct Auto 0.3 %; Lymphocytes Percent Auto 18.3 % (20-44); Mean Corpuscular HGB Conc 33 gm/dL (32-36); Mean Corpuscular Hemoglobin 28 pg (26-34); Mean Corpuscular Volume 84 fL (80-100); Neutrophils Percent Auto 72.4 % (42.0-72.0); Platelet Count* 246 K/uL (140-440); RDW Coefficient of Variation % 12.8 % (11.5-15.5); Red Blood Count 4.73 m/uL (4.00-5.20); White Blood Count* 9.39 K/uL (4.50-11.00)
[2023-06-12 11:17] LABS: Slide Review Reflex No
--- NOTE | 2023-06-12 15:58 | PM.OBPNL ---
Subjective Time Seen by Provider: 14:00 Date Seen: 06/12/23 Narrative: Faina is a 27 yo X7T0-3-7-9 woman here for elective IOL at 40 weeks, 3 days gestation. She is feeling contractions now, but they are not strong. She is doing well and is on the birthing ball. Objective Vital Signs: Last Vital Signs Temp 98.4 F 06/12/23 15:51 Pulse 75 06/12/23 15:51 Resp 16 06/12/23 15:51 BP 121/60 06/12/23 15:51 Pulse Ox 98 06/12/23 14:44 Pelvic Exam Dilation (cm): 4 Effacement (%): 75 Station: -1 Comments: AROM for clear fluid Contractions Monitor mode: External Contraction Frequency: Z3 Contraction pattern: Regular Assessment Assessment: early labor Amniotic Membrane Status: SROM Status: Category l Heart Rate Baseline: 135 Director Instructional Material Variability: Moderate (6-25) Monitor Accelerations: Present Monitor Decelerations: None Tracing Comments: Reassuring status. GBS negative Labor Progress: Latent labor. Maternal Status: Reassuring Plan Plan: Continue pitocin augmentation. Continuous EFM.
[2023-06-12] MEDS: LACTATED RINGERS 1000 ML 1,000 ML 1200 ML IV (16:28)
[2023-06-12] MEDS: ROPIVACAINE 0.2% 100 ml 100 ML 12 MG EPIDURAL (17:14)
--- NOTE | 2023-06-12 17:27 | P.ANBPRC_ITS ---
PFSH PFSH Medical History Labial hypertrophy ?N90.60 - Unspecified hypertrophy of vulva (ICD-10) Suicidal ideation ?R45.851 - Suicidal ideations (ICD-10) History of self injurious behavior History of marijuana use ?Z87.898 - Personal history of other specified conditions (ICD-10) Surgical History S/P genital surgery ?Z98.890 - Other specified postprocedural states (ICD-10) Normal spontaneous vaginal delivery ?O80 - Encounter for full-term uncomplicated delivery (ICD-10) Family History Mother Depression Anxiety Thyroid disease Sister Anxiety ADD (attention deficit disorder) Social History Narrative: Single, One kid, Non-smoker. No alcohol use. What is your current living situation?: I presently have a place to live Problems where you live: no known problems In the past 12 months, utilities in danger of being shut off: no In past 12 months, lack of transportation kept you from medical appts, meetings, work, or getting things needed for daily living: no In the past 12 mos, have been you worried that your food would run out before you had money to buy more?: never true In the past 12 mos, the food you bought just didn't last and you didn't have money to buy more?: never true Smoking Status: Never smoker Do you use any of these nicotine containing products: None How often do you have a drink containing alcohol: monthly or less Alcohol type: wine How many standard drinks containing alcohol do you have on a typical day: 1 or 2 How often do you have six or more drinks on one occasion: Never AUDIT-C Alcohol total score: 1 Non-prescribed substance use: denies use Caffeine: Yes (1 cup coffee am) How often does anyone, including family, friends and others, physically hurt you : never How often does anyone, including family, friends and others, insult or talk down to you: never How often does anyone, including family, friends and others, threaten you with harm: never How often does anyone, including family, friends and others, scream or curse at you: never Little interest or pleasure in doing things: not at all Feeling down, depressed, or hopeless: not at all Are you using contraception or practicing any form of control: Yes Meds Home Medications and Allergies Home Medications Medication Instructions Recorded Confirmed Type docosahexaenoic acid 200 mg 200 mg PO DAILY 11/06/22 06/12/23 History capsule ( DHA) Allergies Allergy/AdvReac Type Severity Reaction Status Date / Time No Known Drug Allergies Allergy Verified 06/10/23 10:54 Results Labs Labs: Laboratory Results - last 24 hr 06/12/23 08:50 WBC 9.39 RBC 4.73 Hgb 13.2 Hct 39.5 MCV 84 MCH 28 MCHC 33 RDW Coeff of Joana 12.8 Plt Count 246 Neut % (Auto) 72.4 H Lymph % (Auto) 18.3 L [place] % (Auto) 6.0 Eos % (Auto) 2.7 Baso % (Auto) 0.3 Neut # (Auto) 6.80 Lymph # (Auto) 1.70 [place] # (Auto) 0.60 Eos # (Auto) 0.25 Baso # (Auto) 0.03 Abs Immat Gran (auto) 0.03 Imm/Tot Granulo (auto) 0.3 Blood Type O Positive Antibody Screen NEGATIVE Vital Signs Vital Signs: Last Vital Signs Temp 98.4 F 06/12/23 15:51 Pulse 76 06/12/23 17:27 Resp 16 06/12/23 15:51 BP 114/61 06/12/23 17:27 Pulse Ox 99 06/12/23 17:24 Weight: 80.467 kg Height: 157.48 cm Anesthesia Procedures Epidural Insertion Patient Location: OB Start Time: 16:40 Stop Time: 17:40 Start Date: 06/12/23 Stop Date: 06/12/23 Reason for Block: procedure for pain Patient Position: sitting Performed By: Aly Read Preanesthetic Checklist: IV checked, risks and benefits discussed, surgical consent, monitors and equipment checked, pre-op evaluation, timeout performed and anesthesia consent Prep: chlorhexidine gluconate Monitoring: blood pressure monitoring, continuous pulse oximetry and heart rate Approach: midline Vertebral Space: lumbar (1-5) Epidural Technique: GERMAINE saline Needle Type: Tuohy needle Injection Technique: continuous catheter Needle gauge: 17 Needle Length (cm): 10 cm Needle Insertion Depth (cm): 6 Catheter Gauge: 19 Catheter Type: multi-orifice Catheter at skin depth (cm): 12 Test Dose Result: negative and lidocaine 1.5% with epinephrine 1 to 200,000
--- NOTE | 2023-06-12 19:29 | W.PM.VAGDEL1 ---
Procedure Delivery date: 06/12/23 Procedure Done: Global Procedure Details: The patient is a 27 year-old -0-0-1 woman admitted on 06/12/23 at 40 Weeks, 3 Days gestation for elective induction of labor.? Cervical exam on admission was 3 cm, 70% effaced, -1 station, mid position, soft with membranes intact in vertex presentation.? heart rate demonstrated baseline 130 bpm with moderate variability, + accelerations, no decelerations; a category 1 tracing.? She had pitocin for induction of labor. AROM occurred at 1:59 PM with clear fluid. ? Labor Analgesia:? epidural ? Pitocin:? yes ? Labor onset:? 3 PM ? Complete:? 6:44 PM ? Pushing:? 6:50 PM ? heart tones during second stage were notable for baseline of 110s, intermittent variable decelerations. ? At 7:19 PM a viable male delivered in vertex MAURO presentation over intact perineum via vaginal delivery.? head delivered but anterior (right) shoulder did not after gentle downward guidance of the head. Shoulder dystocia was diagnosed. Faina was placed in McRobert's position and anterior shoulder easily delivered. Time between delivery of head and anterior shoulder was about 15 seconds. was placed on maternal abdomen.? Cord was clamped and cut after a 30-60 second delay.? Nose and mouth were bulb suctioned.? weight pending.? 8 at 1 minute and 9 at 5 minutes.? Nuchal cord: no. ? Placenta delivered spontaneously and complete at 7:36 PM with a 3 vessel cord. ? Mother and infant were stable after delivery. ? Lacerations:? none ? Blood loss: 50 mL. Blood loss measurement type: QBL ? Sponge and needles counts are correct.
[2023-06-12] MEDS: IBUPROFEN 600 MG TABLET PO (22:36)
[2023-06-13 00:13] VITALS: BP 105/68; PULSE 77; RESP 16; TEMP 36.6; O2SAT 97
[2023-06-13] MEDS: ACETAMINOPHEN 500 MG TABLET 1000 MG PO ×3 (00:21→16:51)
[2023-06-13 04:00] VITALS: BP 103/63; PULSE 75; RESP 16; TEMP 36.7; O2SAT 98
[2023-06-13] MEDS: IBUPROFEN 600 MG TABLET PO ×3 (04:08→21:09)
[2023-06-13 06:13] LABS: Hemoglobin* 11.8 gm/dL (12.0-16.0)
[2023-06-13] MEDS: DOCUSATE SODIUM 100 MG CAPSULE PO (09:58)
[2023-06-13 09:59] VITALS: BP 100/64; PULSE 82; RESP 16; TEMP 36.6; O2SAT 98
--- NOTE | 2023-06-13 12:33 | PM.ANPOST ---
Post Anesthesia Note Post Anesthesia Note Patient seen: Inpatient Respiratory Status: adequate Cardiovascular Status: adequate Mental Status: baseline Pain: adequate Temp: baseline Anesthetic awareness: N/A Complications: none Follow care: none
--- NOTE | 2023-06-13 13:11 | PM.OBPNVD1 ---
OB - PN:Subj Subjective Date Seen: 06/13/23 Narrative: Faina is a 27 y.o. who was admitted to [facility] for elective induction of labor. ?She had an uncomplicated NVD.?The patient feels well. ?The pain is well controlled with current medications. ?She has no new complaints. ?She is breast feeding and reports things are going well.? the patient has done well.? Vitals have been stable.? She has remained afebrile.? Has a good appetite, is tolerating a general diet. ?She is voiding without difficulty.? She is passing gas and has not had a bowel movement.? She is ambulating and denies any dizziness.? Has small amount of rubra lochia. ? OB - PN: Obj Exam Physical Exam: Vital signs: Temp Pulse Resp BP Pulse Ox O2 Del Method 97.9 F 82 16 100/64 98 Room Air 06/13/23 09:59 06/13/23 09:59 06/13/23 09:59 06/13/23 09:59 06/13/23 09:59 06/13/23 09:59 Narrative: GENERAL APPEARANCE:? normal affect, alert, no distress MOOD:? appropriate CHEST:? clear to auscultation HEART:? regular rate and rhythm ABDOMEN:? soft, non-tender the uterine fundus is at Umbilicus, Midline and is appropriate for the stage of recovery. PERINEUM:? mild edema of the perineum. EXTREMITIES:? normal and trace edema OB - PN: Obj Data Labs Labs: Laboratory Results - last 24 hr 06/13/23 05:57 Hgb 11.8 L OB - PN: A/P Delivery Assessment and Plan (1) care and examination immediately after delivery: Status: Acute (2) Lactating mother: Status: Acute Plan day: 1 Plan: routine care Comments: Routine care Hgb 11.8 Lactating mother, may see if desired Anticipate discharge tomorrow
[2023-06-13 13:44] VITALS: BP 105/66; PULSE 76; RESP 16; O2SAT 98
[2023-06-13] MEDS: SERTRALINE 50 MG TABLET PO (14:34)
[2023-06-13 17:16] VITALS: BP 106/66; PULSE 75; RESP 16; TEMP 36.6; O2SAT 98
[2023-06-13 17:27] LABS: Rapid Plasma Reagin (RPR) Non Reactive (Non Reactive)
[2023-06-13 19:42] VITALS: BP 106/64; PULSE 67; RESP 16; TEMP 36.3; O2SAT 97
[2023-06-14] MEDS: ACETAMINOPHEN 500 MG TABLET 1000 MG PO ×2 (00:06→06:12)
[2023-06-14 00:17] VITALS: BP 99/63; PULSE 92; RESP 16; TEMP 36.6; O2SAT 96
[2023-06-14] MEDS: IBUPROFEN 600 MG TABLET PO (03:02)
[2023-06-14 08:48] VITALS: BP 111/72; PULSE 72; RESP 16; TEMP 36.6; O2SAT 96
[2023-06-14] MEDS: DOCUSATE SODIUM 100 MG CAPSULE PO (08:55)
[2023-06-14] MEDS: SERTRALINE 50 MG TABLET PO (08:55)
--- NOTE | 2023-06-14 09:51 | P.DS_ITS ---
DS: Providers Provider Date Seen: 06/14/23 Date of admission: 06/12/23 07:34 Primary care physician: Amadeo Kiser MD Admitting Clinician: Nohemy Daugherty MD Attending Physician on discharge: Nohemy Daugherty MD Date of Discharge: 06/14/23 DS: Diagnosis Discharge Diagnosis (1) Lactating mother: Status: Acute (2) Normal spontaneous vaginal delivery: Status: Acute (3) Anxiety and depression: Status: Acute Exam Narrative: Exam Narrative: Physical exam: General: No acute distress Psych: Alert and oriented x3, full affect HEENT: Normocephalic, atraumatic Heart: Regular rate and rhythm, no murmur rub or gallop Lungs: Clear to auscultation bilaterally Abdomen: Soft, nontender, fundus 1 cm above umbilicus Lower extremities: 2+ edema to bilateral shins, no erythema Const: Vital Signs, click to edit/add: Vital Signs - 24 hr 06/13/23 09:59 06/13/23 13:44 06/13/23 17:16 Temperature 97.9 F 97.9 F Pulse Rate [Pulse Oximeter] 82 76 75 Respiratory Rate 16 16 16 Blood Pressure [Ri ght Arm] 100/64 105/66 106/66 Pulse Oximetry 98 98 98 Oxygen Delivery Me thod Room Air Room Air Room Air 06/13/23 19:42 06/14/23 00:17 06/14/23 08:48 Temperature 97.3 F L 97.9 F 97.9 F Pulse Rate [Pulse Oximeter] 67 92 72 Respiratory Rate 16 16 16 Blood Pressure [Ri ght Arm] 106/64 99/63 111/72 Pulse Oximetry 97 96 96 Oxygen Delivery Me thod Room Air Room Air Room Air OB - DS: Summary Hospital Course Hospital Course: The patient is a 27 year old G now P 2-0-0-2 woman who was admitted on 06/12/23 at 40 weeks, 3 days gestation for elective induction of labor. She had an uncomplicated vaginal delivery. She delivered a viable male infant. She is breast feeding. the patient has done well. Today, on day 2, she has no complaints. She does feel some pulling pain and pelvic aching upon arising, and is experimenting with abdominal binders. She denies any heavy bleeding. She is ambulating and urinating without difficulty. Peripartum Data delivery method: Vaginal Laceration description: None Episiotomy description: None complications: none [place] Infant Gender: Male Time Spent with Patient Time attestation: Total time spent providing and/or coordinating discharge services: Discharge Plan Discharge Disposition: Home, Self-Care Date of Admission: 06/12/23 07:34 Attending Provider on Discharge: Nohemy Daugherty Primary Care Provider: Amadeo Kiser Condition: Stable Anticipated Discharge Date/Time: 06/14/23 09:55 Discharge Medications: New acetaminophen 500 mg Tablet 1,000 mg PO Q6H PRNQty: 0 0RF docusate sodium 100 mg Capsule 100 mg PO DAILY Qty: 60 0RF ibuprofen 600 mg Tablet 600 mg PO Q6H PRNQty: 60 0RF Continued budesonide-formoterol 80-4.5 mcg/actuation HFA aerosol inhaler 2 puff inhalation BID Qty: 10.2 0RF albuterol sulfate [Ventolin HFA] 90 mcg/actuation HFA aerosol inhaler 2 puff inhalation Q4H PRN (Reason: shortness of breath or wheezing) Qty: 8.5 1RF DHA 200 mg capsule 200 mg PO DAILY sertraline 50 mg tablet 50 mg PO DAILY Qty: 60 0RF Discharge Orders: Discharge Order (Routine); Ordered 06/14/23 Ordered By: Nohemy Daugherty Patient Education: OB Vaginal/Breast Feeding Additional Instructions: [facility] 2 and 6 weeks Activity Level: Activity as Tolerated Activity Detail: nothing per vagina until bleeding stops Discharge Diet: Regular Follow Up Appointments: Amadeo Kiser MD [Primary Care Provider] - Nohemy Daugherty MD [Staff Physician] - Forms: [email or web address] Info Instructions DS:Data Additional Comments Additional comments: Hemoglobin 11.8 on 06/13/2023
== END 2023-06-14 11:57 | disposition home or self-care (01) | DRG 560 ==
PROVIDERS: Admitting Provider Obstetrics & Gynecology; PCP Family Medicine; Visit Provider Obstetrics & Gynecology
DX: O48.0 Post-term pregnancy (principal); O66.0 Obstructed labor due to shoulder dystocia; O99.344 Other mental disorders complicating childbirth; F32.A Depression, unspecified; F41.9 Anxiety disorder, unspecified; Z37.0 Single live birth; Z3A.40 40 weeks gestation of pregnancy
CPT/HCPCS: 01967; 36415; 85018; 85025; 86592; 86850; 86900; 86901; A9270; J0665; J2371; J2795; J7120

== ENCOUNTER 2024-10-18 13:36 | Outpatient (CLI) | payer SELFPAY ==
--- NOTE | 2024-10-18 14:00 | CRLHL7_ITS ---
For Patients: As a result of the Cures Act, medical imaging exams and procedure reports are released immediately into your electronic medical record. You may view this report before your referring provider. If you have questions, please contact your health care provider. OB ULTRASOUND LESS THAN 14 WEEKS, 10/08/2024 CLINICAL HISTORY: Dating and viability. COMPARISON: None. TECHNIQUE: Real time gamez scale imaging of the fetus was performed. Transabdominal imaging performed. Patient denied transvaginal imaging. FINDINGS: Imaging: TA. TV denied. LMP: 08/09/2024. ERNESTO by LMP: 05/16/2025. GA: 10 weeks 0 days. Previous US: No. CRL: 2.3 cm, 9 weeks 0 days. ERNESTO 06/02/2025. FHR: 169 bpm. GEST SAC: 3.7 cm, appears WNL. YOLK SAC: 3.6 mm, appears WNL. RIGHT OV: 2.9 x 1.5 x 2.3 cm. CL. LEFT OV: 3.3 x 1.4 x 2.1 cm. IMPRESSION: Single living intrauterine measuring 9 weeks 0 days and sonographic due date 05/23/2025. Amadeo Martin M.D. Diagnostic Radiologist [email or web address] Transcribed: 9:35 am DW/Dictated by: Amadeo Martin MD @ 10/19/2024 6:47:00 AM (Electronically Signed)
== END 2024-10-18 13:37 | disposition home or self-care (01) ==
LOC: US 13:36
PROVIDERS: PCP Family Medicine; Visit Provider Physician Assistant
DX: Z34.91 Encounter for supervision of normal pregnancy, unspecified, first trimester (principal); Z3A.09 9 weeks gestation of pregnancy
CPT/HCPCS: 76801

== ENCOUNTER 2024-10-18 14:34 | Outpatient (CLI) | payer SELFPAY | END 2024-10-18 14:35 | disposition home or self-care (01) | PROVIDERS: PCP Family Medicine; Visit Provider Advanced Practice Midwife | DX: Z34.81 Encounter for supervision of other normal pregnancy, first trimester (principal); Z67.40 Type O blood, Rh positive | CPT/HCPCS: 83020; 83021; 85660; 86592; 86703; 86704; 86706; 86762; 86787; 86803; 86850; 86900; 86901; 87086; 87340 ==

== ENCOUNTER 2024-11-16 14:28 | Outpatient (CLI) | payer MEDICAID, SELFPAY | END 2024-11-16 14:29 | disposition home or self-care (01) | PROVIDERS: PCP Family Medicine; Visit Provider Obstetrics & Gynecology | DX: R35.0 Frequency of micturition (principal); N39.0 Urinary tract infection, site not specified | CPT/HCPCS: 87086 ==

== ENCOUNTER 2024-12-23 09:56 | Outpatient (CLI) | payer OTHER, SELFPAY ==
--- NOTE | 2024-12-23 10:00 | CRLHL7_ITS ---
For Patients: As a result of the Century Cures Act, medical imaging exams and procedure reports are released immediately into your electronic medical record. You may view this report before your referring provider. If you have questions, please contact your health care provider. OBSTETRICAL ULTRASOUND ??? ANATOMY SURVEY, 12/23/2024 INDICATION: screen. CLINICAL HISTORY: LMP: 08/09/2024 ERNESTO by LMP: 05/16/2025 Gestational age: 19 weeks 3 days TECHNIQUE: Real-time gamez-scale transabdominal imaging of the fetus was performed. PREVIOUS ULTRASOUND: 10/18/2024 FINDINGS: position: Vertex Cervix: Visualized Technique: Transabdominal Length of closed cervix: 4.5 cm Placenta position: Posterior Technique: Transabdominal Placenta tip to internal os: 5.6 cm Umbilical cord: 3-vessel cord Placental insertion: Central Amniotic fluid: 4.4 cm SDP (greater than/equal to 2 to less than 8 cm) ANATOMY SURVEY: Observed Structures Cerebellum: Yes; 2.0 cm, 20 weeks 2 days Cisterna magna: Yes; 4.0 mm Nuchal fold: Yes; 4.9 mm Lateral ventricle: Yes; 6.0 mm CSP: Yes Midline falx: Yes Choroid plexus: Yes Spine: Yes Stomach: Yes Abdominal cord insert: Yes Urinary bladder: Yes Kidneys: Yes Diaphragm: Yes Nose/lips: Yes Orbital view: Yes Profile: Yes Upper extremities: Yes Lower extremities: Yes Hands: Yes Feet: Yes 4-chamber heart: Yes LVOT: Yes RVOT: Yes 3VV: Yes 3VTV: Yes BIOMETRY BPD: 4.1 cm, 18 weeks 4 days, 16% HC: 15.2 cm, 18 weeks 2 days, 4% AC: 12.8 cm, 18 weeks 2 days, 14% FL: 2.6 cm, 17 weeks 6 days, 5% FL/AC: 20.39% HC/AC ratio: 1.19 heart rate: 133 bpm age by this ultrasound: 18 weeks 5 days ERNESTO by this ultrasound: 05/21/2025 Estimated weight: 226 grams (0 pounds 8 ounces) Percentile by ERNESTO: 3.1% IMPRESSION: 1) Sonographic gestational age is 18 weeks 5 days and sonographic due date is 05/21/2025. Sonographic age is 5 days behind the clinical age. 2) Estimated weight is 3rd percentile. Abdominal circumference is 14th percentile. 3) Umbilical artery S/D ratio is 4.8, abnormal. Maternal Medicine consultation is recommended. 4) Normal anatomic survey. AMADEO ECKERT M.D. Diagnostic Radiologist [email or web address] Transcribed: 11:[address]/Dictated by: Amadeo Eckert MD @ 12/23/2024 11:28:00 AM (Electronically Signed)
== END 2024-12-23 09:57 | disposition home or self-care (01) ==
LOC: US 09:57
PROVIDERS: PCP Family Medicine; Visit Provider Obstetrics & Gynecology
DX: O36.5920 Maternal care for other known or suspected poor fetal growth, second trimester, not applicable or unspecified (principal); Z3A.18 18 weeks gestation of pregnancy
CPT/HCPCS: 76805; 76820

== ENCOUNTER 2025-02-02 12:49 | Outpatient (CLI) | payer OTHER, SELFPAY ==
--- NOTE | 2025-02-02 13:00 | CRLHL7_ITS ---
For Patients: As a result of the Century Cures Act, medical imaging exams and procedure reports are released immediately into your electronic medical record. You may view this report before your referring provider. If you have questions, please contact your health care provider. OB ULTRASOUND ERNESTO by US: 05/23/2025. GA: 24 w, 2 d. Single. Comparison: Ultrasound 12/23/2024, 12/30/2025 at [place]. INDICATION: IUGR. TECHNIQUE: Real time grayscale imaging of the fetus was performed. Transabdominal. CERVIX: Not visualized. POSITIONING: Vertex. AMNIOTIC FLUID: 6.0 cm. SDP (N: greater than 2 x 1 cm) PLACENTA: Technique: Transabdominal. PLACENTA POSITION: Posterior. DOPPLER: heart rate: 147 bpm. BIOMETRY: BPD: 6.0 cm. 24 w, 3 d, 47%. HC: 22.0 cm. 24 w, 0 d, 21%. AC: 19.7 cm. 24 w, 3 d, 44%. FL: 4.3 cm. 24 w, 0 d, 28%. FL/AC ratio: 21.71%. HC/AC ratio: 1.11. EFW: 671g. Weight: 1 lbs., 8 oz. age by this US: 24 w, 2 d. ERNESTO by this US: 05/23/2025. Percentile by ERNESTO: 37%. IMPRESSION: 1. Sonographic gestational age 24 weeks 2 days and sonographic due date 05/23/2025. Good correlation with dates. Normal interval growth. 2. Estimated weight 37th percentile. Abdominal circumference 44th percentile. Amadeo Martin M.D. Diagnostic Radiologist [email or web address] RYAN/chadd florentino/Dictated by: Amadeo Martin MD @ 02/03/2025 9:18:00 AM (Electronically Signed)
== END 2025-02-02 12:50 | disposition home or self-care (01) ==
LOC: US 12:50
PROVIDERS: PCP Family Medicine; Visit Provider Obstetrics & Gynecology
DX: O36.5920 Maternal care for other known or suspected poor fetal growth, second trimester, not applicable or unspecified (principal); Z3A.24 24 weeks gestation of pregnancy
CPT/HCPCS: 76816

== ENCOUNTER 2025-03-01 10:22 | Outpatient (CLI) | payer OTHER, SELFPAY ==
--- NOTE | 2025-03-01 10:15 | CRLHL7_ITS ---
For Patients: As a result of the Cures Act, medical imaging exams and procedure reports are released immediately into your electronic medical record. You may view this report before your referring provider. If you have questions, please contact your health care provider. OB ULTRASOUND FOLLOW-UP CLINICAL HISTORY: History of IUGR. TECHNIQUE: Real time gamez scale imaging of the fetus was performed. Transabdominal imaging performed. COMPARISON: 12/23/2024, 02/02/2025. FINDINGS: ERNESTO by US: 05/23/2025. GA: 28 weeks 1 day. Gestation: Single. Cervix: Not visualized. Position: Vertex. Amniotic Fluid: 5.0 cm SDP. Placenta: Technique: TA. Placenta Position: Posterior. Dopplers: Heart Rate: 142 bpm. BIOMETRY BPD: 7.9 cm, 28 weeks 0 days. 32.1% HC: 26.0 cm, 28 weeks 2 days. 21.4% AC: 22.8 cm, 27 weeks 2 days. 17.3% FL: 5.0 cm, 27 weeks 0 days. 10.6% FL/AC Ratio: 22.1% HC/AC Ratio: 1.1. EFW: 1056 grams, 2 lb 5 oz. Age by this US: 27 weeks 5 days. ERNESTO by this US: 05/26/2025. Percentile by ERNESTO: 12.9% IMPRESSION: 1. Sonographic gestational age 27 weeks 5 days and sonographic due date 05/26/2025. Good correlation with dates. Normal interval growth. 2. Estimated weight 13th percentile. Abdominal circumference 17th percentile. Amadeo Martin M.D. Diagnostic Radiologist [email or web address] Transcribed: 2:40 am DW/Dictated by: Amadeo Martin MD @ 03/01/2025 1:11:00 PM (Electronically Signed)
== END 2025-03-01 10:23 | disposition home or self-care (01) ==
LOC: US 10:23
PROVIDERS: PCP Family Medicine; Visit Provider Obstetrics & Gynecology
DX: O36.5930 Maternal care for other known or suspected poor fetal growth, third trimester, not applicable or unspecified (principal); Z3A.28 28 weeks gestation of pregnancy
CPT/HCPCS: 76816; 86592

== ENCOUNTER 2025-03-30 08:03 | Outpatient (CLI) | payer OTHER, SELFPAY ==
--- NOTE | 2025-03-30 08:15 | CRLHL7_ITS ---
For Patients: As a result of the Century Cures Act, medical imaging exams and procedure reports are released immediately into your electronic medical record. You may view this report before your referring provider. If you have questions, please contact your health care provider. OB ULTRASOUND ERNESTO by LMP or US: 05/13/2025. GA: 32 w, 2 d. Single. Comparison: 03/01/2025, 02/02/2025, 12/23/2024. INDICATION: History of IUGR. TECHNIQUE: Real time gamez scale imaging of the fetus was performed. Transabdominal imaging performed. CERVIX: Not visualized. POSITIONING: Vertex. AMNIOTIC FLUID: 6.8 cm SDP (N: greater than 2 x 1 cm) PLACENTA: Technique: Transabdominal. PLACENTA POSITION: Posterior. DOPPLER: heart rate: 137 bpm. BIOMETRY: BPD: 8.2 cm, 32 weeks 6 days, 57th percentile. HC: 30.0 cm, 33 weeks 2 days, 38th percentile. AC: 28.5 cm, 32 weeks 4 days, 57th percentile. FL: 5.8 cm, 30 weeks 2 days, 4th percentile. FL/AC ratio: 20.34 percent. HC/AC ratio: 1.05. EFW: 1877 g. Weight: 4 lbs, 2 oz. age by this US: 32 w, 2 d. ERNESTO by this US: 05/23/2025. Percentile by ERNESTO: 30th percentile. IMPRESSION: 1) Sonographic gestational age 32 weeks 2 days and sonographic due date 05/23/2025. Good correlation with dates. 2) Estimated weight at the 30th percentile. Abdominal circumference 57th percentile. AMADEO ECKERT M.D. Diagnostic Radiologist [email or web address] DW/Dictated by: Amadeo Eckert MD @ 04/03/2025 1:01:00 PM (Electronically Signed)
== END 2025-03-30 08:04 | disposition home or self-care (01) ==
LOC: US 08:03
PROVIDERS: PCP Family Medicine; Visit Provider Obstetrics & Gynecology
DX: O09.293 Supervision of pregnancy with other poor reproductive or obstetric history, third trimester (principal); Z3A.32 32 weeks gestation of pregnancy
CPT/HCPCS: 76816